=== PATIENT | female | born 1945 | race Asian ===

== ENCOUNTER 2017-05-07 22:31 | Emergency (ER) | payer OTHER ==
[~2017-05-07] VITALS: Ht 157.5 cm; Wt 99.3 kg
[2017-05-08 00:51] VITALS: BP 172/85; TEMP 98.2
== END 2017-05-08 00:51 | disposition home or self-care (01) ==
LOC: ED 22:31
DX: M43.6 Torticollis (principal)
CPT/HCPCS: 96372; 99283; J1885; J2360

== ENCOUNTER → 2017-11-12 11:47 | Outpatient (CLI) | payer OTHER | END | disposition home or self-care (01) | LOC: AMB 11:47 | DX: Z04.1 Encounter for examination and observation following transport accident (principal) ==

== ENCOUNTER 2017-11-12 12:51 | Emergency (ER) | payer OTHER ==
[~2017-11-12] VITALS: Ht 157.5 cm; Wt 94.8 kg
[2017-11-12 13:00] VITALS: TEMP 98.4
[2017-11-12 14:58] VITALS: BP 136/73
== END 2017-11-12 14:59 | disposition home or self-care (01) ==
LOC: ED 12:51
DX: S13.8XXA Sprain of joints and ligaments of other parts of neck, initial encounter (principal); S16.1XXA Strain of muscle, fascia and tendon at neck level, initial encounter; V43.52XA Car driver injured in collision with other type car in traffic accident, initial encounter; Y92.89 Other specified places as the place of occurrence of the external cause
CPT/HCPCS: 99283

== ENCOUNTER 2018-01-16 10:31 | Outpatient (CLI) | payer OTHER | END 2018-01-16 12:30 | disposition home or self-care (01) | LOC: MAMMO 10:31 | DX: Z12.31 Encounter for screening mammogram for malignant neoplasm of breast (principal) ==

== ENCOUNTER 2019-03-31 14:36 | Outpatient (CLI) | payer OTHER | END 2019-03-31 19:26 | disposition home or self-care (01) | LOC: MAMMO 14:36 | DX: N64.59 Other signs and symptoms in breast (principal); Z12.31 Encounter for screening mammogram for malignant neoplasm of breast ==

== ENCOUNTER 2020-05-02 11:30 | Outpatient (CLI) | payer OTHER | END 2020-05-02 19:30 | disposition home or self-care (01) | LOC: MAMMO 11:30 | DX: Z12.31 Encounter for screening mammogram for malignant neoplasm of breast (principal) ==

== ENCOUNTER 2020-09-05 19:35 | Emergency (ER) | payer OTHER ==
[~2020-09-05] VITALS: Ht 157.5 cm; Wt 86.6 kg
[2020-09-05 21:22] LABS: PLATELET COUNT 253 K/uL (152-353)
[2020-09-05 21:29] LABS: POTASSIUM 4.1 mmol/L (3.6-5.2)
[2020-09-05 22:41] VITALS: BP 172/72; TEMP 98.8
== END 2020-09-05 22:49 | disposition home or self-care (01) ==
LOC: ED 19:35
PROVIDERS: Emergency Medicine Emergency Medical Services
DX: S29.011A Strain of muscle and tendon of front wall of thorax, initial encounter (principal); S29.012A Strain of muscle and tendon of back wall of thorax, initial encounter
CPT/HCPCS: 36415; 80053; 81000; 85027; 96360; 96375; 99284; J2270

== ENCOUNTER 2021-05-19 14:31 | Outpatient (CLI) | payer OTHER | END 2021-05-19 22:36 | disposition home or self-care (01) | LOC: MAMMO 14:31 | PROVIDERS: ATTEND Internal Medicine | DX: Z12.31 Encounter for screening mammogram for malignant neoplasm of breast (principal) ==

== ENCOUNTER 2022-10-31 11:41 | Outpatient (CLI) | payer OTHER ==
[2022-10-31 12:19] LABS: POTASSIUM 3.9 mmol/L (3.6-5.2)
[2022-10-31 13:00] LABS: PLATELET COUNT 219 K/uL (152-353)
== END 2022-10-31 20:14 | disposition home or self-care (01) ==
LOC: LABW 11:41
PROVIDERS: ATTEND Internal Medicine Cardiovascular Disease
DX: Z79.899 Other long term (current) drug therapy (principal)
CPT/HCPCS: 36415; 80053; 80061; 85027

== ENCOUNTER 2023-04-17 15:12 | Outpatient (CLI) | payer OTHER ==
[2023-04-17 16:04] LABS: POTASSIUM 4.8 mmol/L (3.6-5.2)
== END 2023-04-17 19:23 | disposition home or self-care (01) ==
LOC: LABW 15:12
PROVIDERS: ATTEND Internal Medicine Cardiovascular Disease
DX: Z79.899 Other long term (current) drug therapy (principal); R06.02 Shortness of breath
CPT/HCPCS: 36415; 80048; 83880